=== PATIENT | female | born 1950 | race Caucasian/White ===

== ENCOUNTER 2019-03-16 14:05 | Outpatient (CLI) | payer MEDICARE, OTHER ==
[~2019-03-16] VITALS: Ht 154.9 cm; Wt 62.6 kg
[2019-03-16 14:15] VITALS: BP 122/65
--- NOTE | 2019-03-16 23:45 | Consultation ---
DATE OF CONSULTATION: 03/16/2019 CHIEF COMPLAINT: Here for screening colonoscopy and recent history of diverticulitis. HISTORY OF PRESENT ILLNESS: This is a very pleasant 68-year-old female who has not had any recent colonoscopy, was referred to us for colonoscopy after having diverticulitis in November. PAST MEDICAL HISTORY: 1. GERD. 2. Diverticulitis. 3. Mitral valve prolapse. PAST SURGICAL HISTORY: Hysterectomy. MEDICATIONS: FAMILY HISTORY: No family history of GI malignancies. SOCIAL HISTORY: The patient denies any tobacco, alcohol, or drug abuse. ALLERGIES: Penicillin, codeine, and phenothiazine. REVIEW OF SYSTEMS: A 10-point review of systems was performed and pertinent positives in HPI. PHYSICAL EXAMINATION: VITAL SIGNS: Temperature 97.4, pulse 70, respiratory rate 20, blood pressure 122/64. HEENT: Normocephalic and atraumatic. Sclerae anicteric NECK: Supple. No evidence of lymphadenopathy. CARDIOVASCULAR: Regular rate and rhythm. Plus S1 and S2. No obvious murmur. LUNGS: Clear to auscultation bilaterally. ABDOMEN: Positive bowel sounds. Soft and nontender. No rebound. No guarding. No peritoneal sign. EXTREMITIES: No cyanosis, no clubbing, no edema. ASSESSMENT: This is a 68-year-old female with recent diagnosis of diverticulitis in November status post treatment, has not had any colonoscopy in the last 5 years, was referred to us for colonoscopy. The procedure was explained to the patient. The risks and benefits and the prep was given to her. She agreed to the planned for 03/27/2019 at 8 o'clock. I want to thank, Dr. Shailesh Lowery for this kind referral. Yan Orozco M.D. DR: Anny JOB#: [id number] CC: Shailesh Lowery M.D.; Fax#: [phone]
[2019-03-17] MEDS ORDERED: NO MEDICATION (08:39)
== END 2019-03-16 15:47 | disposition home or self-care (01) ==
LOC: PAN 14:05
DX: K57.90 Diverticulosis of intestine, part unspecified, without perforation or abscess without bleeding (principal); K21.9 Gastro-esophageal reflux disease without esophagitis; Z90.710 Acquired absence of both cervix and uterus; Z88.0 Allergy status to penicillin; Z88.6 Allergy status to analgesic agent; Z88.8 Allergy status to other drugs, medicaments and biological substances
CPT/HCPCS: 99202

== ENCOUNTER 2019-03-27 08:11 | Day surgery (SDC) | payer MEDICARE, OTHER ==
[2019-03-27] VITALS (10 sets, daily range): BP systolic 109–122; BP diastolic 64–77
[~2019-03-27] VITALS: Ht 154.9 cm; Wt 61.7 kg
[~2019-03-27 08:11] MED LIST: NO MEDICATION
--- NOTE | 2019-03-27 08:50 | Short Stay Surgery H&P ---
History of Present Illness History of Present Illness Chief Complaint see recent office note HPI Soni Mcgowan is a 68 year old female who was admitted on for Gerd, Diverticulitis Patient History Allergies: Coded Allergies: CODEINE (Verified Allergy, Intermediate, hives, 03/27/19) PENICILLINS (Verified Allergy, Intermediate, hives, 03/27/19) PHENOTHIAZINES (Verified Adverse Reaction, Severe, "stroke like symptoms" , 03/27/19) Medication History Miscellaneous Medications [No Medication ], (Reported) Physical Exam Vital Signs Last Vital Signs Date Time Temp Pulse Resp B/P (MAP) Pulse Ox O2 Delivery O2 Flow Rate FiO2 03/27/19 08:43 Room Air Plan Attestation Are the patient's medical conditions optimized for surgery? Yan Orozco MD Mar 27, 2019 08:50
--- NOTE | 2019-03-27 08:50 | Pre-Procedure Note/Attestation ---
Pre-Procedure Note/Attestation Complete Prior to Procedure Planned Procedure: not applicable Procedure Narrative: esophagogastroduodenoscopy and colonoscopy Indications for Procedure Pre-Operative Diagnosis: screening colonoscopy, GERD, diverticulitis Attestation I attest that I discussed the nature of the procedure; its benefits; risks and complications; and alternatives (and the risks and benefits of such alternatives ), prior to the procedure, with the patient (or the patient's legal entry level marketing representative). I attest that, if there was a reasonable possibility of needing a blood transfusion, the patient (or the patient's legal entry level marketing representative) was given the [facility] standardized written summary, pursuant to the [place] Blood Safety Act ([place] Health and Safety Code # 1645, as amended). I attest that I re-evaluated the patient just prior to the surgery and that there has been no change in the patient's H&P, except as documented below: Yan Orozco MD Mar 27, 2019 08:50
[2019-03-27] MEDS ORDERED: NKM (08:59)
[2019-03-27] MEDS ORDERED: Lidocaine 1% MPF 10mg/ml 5ml ONE (09:00)
[2019-03-27] MEDS ORDERED: Propofol 200mg/20ml IV ONE (09:00)
--- NOTE | 2019-03-27 09:45 | Endoscopy Procedure Note ---
Endoscopy Procedure Note General Indication for Procedure: screening colon Procedures Performed: colonoscopy Operative Findings/Diagnosis: diverticulosis Specimen: none Pt Tolerated Procedure Well: Yes Estimated Blood Loss: none Anesthesia Anesthesiologist: diana Anesthesia: MAC Inserted Devices Implant(s) used?: No Quality Quality of Bowel Preparation: Good Did scope reach the cecum?: Yes Was there any complications?: No GI Core Measures 50 yrs or older w/o bx or poly: No 10yrs. F/U recommended: Yes If not recommended, why?: Above average risk 18 years or older w/prev. colo: Yes <3yrs. since last colonoscopy: No Yan Orozco MD Mar 27, 2019 09:45
[2019-03-27] MEDS ORDERED: fentaNYL 100 mcg/2 mL IV PRN (11:15)
[2019-03-27] MEDS ORDERED: DiphenhydrAMINE 50mg/ml Inj IVP PRN (11:15)
[2019-03-27] MEDS ORDERED: Midazolam 2mg/2ml Inj IVP PRN (11:15)
[2019-03-27] MEDS ORDERED: Atropine Inj 1mg/10ml Syr IV PRN (11:15)
--- NOTE | 2019-03-27 12:24 | Anethesia Preoperative Eval ---
Anesthesia Pre-op PMH/ROS General Date of Evaluation: Mar 27, 2019 Time of Evaluation: 09:00 Anesthesiologist: diana ASA Score: ASA 2 Mallampati Score Class I : Soft palate, uvula, fauces, pillars visible Class II: Soft palate, uvula, fauces visible Class III: Soft palate, base of uvula visible Class IV: Only hard plate visible Mallampati Classification: Class II Surgeon: charlotte Diagnosis: gerd Surgical Procedure: colonoscopy Anesthesia History: none Social History: smoking - nonsmoker Family History: no anesthesia problems Allergies: Coded Allergies: CODEINE (Verified Allergy, Intermediate, hives, 03/27/19) PENICILLINS (Verified Allergy, Intermediate, hives, 03/27/19) PHENOTHIAZINES (Verified Adverse Reaction, Severe, "stroke like symptoms" , 03/27/19) Medications: see eMAR Patient NPO?: Yes Past Medical History Cardiovascular: Reports: other - mitral valve prolapse Gastrointestinal/Genitourinary: Reports: GERD Anesthesia Pre-op Phys. Exam Physician Exam Last Vital Signs Date Time Temp Pulse Resp B/P (MAP) Pulse Ox O2 Delivery O2 Flow Rate FiO2 03/27/19 10:30 62 20 113/71 99 Room Air 03/27/19 10:21 97.7 03/27/19 10:03 6 Constitutional: NAD Neurologic: CN 2-12 intact Cardiovascular: RRR Respiratory: CTA Gastrointestinal: S/NT/ND Airway Exam Mallampati Score: Class II MO: limited Neck: flexible TMD: 2fb ROM: limited Anesthesia Pre-op A/P Risk Assessment & Plan Assessment: asa2 Plan: mac Status Change Before Surgery: No Pre-Antibiotics Drug: Inessa Verde MD Mar 27, 2019 12:24
--- NOTE | 2019-03-27 12:26 | Immediate Post-Op Evaluation ---
Immediate Post-Op Evalulation Immediate Post-Op Evalulation Procedure: colonoscopy Date of Evaluation: Mar 27, 2019 Time of Evaluation: 10:05 IV Fluids: 600ml 0.9ns Blood Products: none Estimated Blood Loss: neglgible Blood Pressure Systolic: 109 Blood Pressure Diastolic: 71 Pulse Rate: 65 Respiratory Rate: 18 O2 Sat by Pulse Oximetry: 99 Temperature (Fahrenheit): 97.1 Pain Score (1-10): 0 Nausea: No Vomiting: No Complications none Patient Status: awake, reacts, patent Hydration Status: adequate Drug: Inessa Verde MD Mar 27, 2019 12:26
--- NOTE | 2019-03-27 12:27 | 48 Hour Post Anesthesia Eval ---
Post Anesthesia Evaluation Procedure: colonoscopy Date of Evaluation: Mar 27, 2019 Time of Evaluation: 10:07 Blood Pressure Systolic: 111 0: 72 Pulse Rate: 62 Respiratory Rate: 18 Temperature (Fahrenheit): 97.1 O2 Sat by Pulse Oximetry: 100 Airway: patent Nausea: No Vomiting: No Pain Intensity: 0 Hydration Status: adequate Cardiopulmonary Status: stable Mental Status/LOC: patient returned to baseline Post-Anesthesia Complications: none Follow-up care needed: N/A Inessa Barlow MD Mar 27, 2019 12:27
--- NOTE | 2019-03-27 16:30 | Procedure Note ---
DATE OF PROCEDURE: 03/27/2019 SURGEON: Yan Orozco M.D. REFERRING PHYSICIAN: Shailesh Lowery M.D. PROCEDURE: Colonoscopy. ANESTHESIA: Per Dr. Hunt. INSTRUMENT: Olympus adult flexible colonoscope. INDICATION: 1. Screening colonoscopy evaluation. 2. History of diverticulitis. REASON FOR PROCEDURE: The procedure, risks, benefits, and possible consequences, including hemorrhage, aspiration, perforation and infection, and alternative treatments, were explained to the patient/legal guardian by Dr. Yan Orozco and the patient/legal guardian understood and accepted these risks. PROCEDURE IN DETAIL: After informed consent was obtained and the patient was adequately sedated, first rectal exam was performed, which was normal. Then, the scope was the advanced from the rectum into the cecum documented by appendiceal orifice, ileocecal valve, and right upper quadrant palpation. Quality of prep overall was good. The patient had some scattered diverticulosis, some on the right and some on the left. No evidence of any active diverticulitis at this time. Retroflexion of rectum showed evidence of few small nonbleeding internal hemorrhoids. SUMMARY OF FINDINGS: 1. Diverticulosis. 2. Internal hemorrhoids. RECOMMENDATIONS: 1. No evidence of any active diverticulitis at this time. 2. No evidence of any GI bleeding at this time. 3. Follow as an outpatient for follow-up. 4. Repeat colonoscopy in 5 years. I want to thank Dr. Shailesh Lowery for this kind referral. Yan Orozco M.D. DR: CORTNEY JOB#: [id number] CC: Shailesh Lowery M.D.; Fax#: [phone]
--- NOTE | 2019-04-04 14:12 | Cardiology Report ---
APPROVED REPORT EKG Measurement Heart [id number] Normal sinus rhythm Normal ECG
== END 2019-03-27 11:10 | disposition home or self-care (01) ==
LOC: GAS 08:11
DX: Z12.11 Encounter for screening for malignant neoplasm of colon (principal); K57.90 Diverticulosis of intestine, part unspecified, without perforation or abscess without bleeding; K64.8 Other hemorrhoids; Z88.6 Allergy status to analgesic agent; Z88.0 Allergy status to penicillin; K21.9 Gastro-esophageal reflux disease without esophagitis
CPT/HCPCS: 93005; G0121; J2704; 94003; 94150

== ENCOUNTER 2019-04-11 09:56 | Outpatient (CLI) | payer MEDICARE, OTHER ==
[~2019-04-11 09:56] MED LIST changes: +NKM
--- NOTE | 2019-04-11 10:29 | General Progress Note ---
Assessment/Plan Problem List: (1) Diverticulosis ICD Codes: K57.90 - Diverticulosis of intestine, part unspecified, without perforation or abscess without bleeding SNOMED: 183596634 (2) Diverticulitis ICD Codes: K57.92 - Diverticulitis of intestine, part unspecified, without perforation or abscess without bleeding SNOMED: 630967094 Assessment/Plan: repeat colonoscopy in 5 years Subjective ROS Limited/Unobtainable: Yes Allergies: Coded Allergies: CODEINE (Verified Allergy, Intermediate, hives, 03/27/19) PENICILLINS (Verified Allergy, Intermediate, hives, 03/27/19) PHENOTHIAZINES (Verified Adverse Reaction, Severe, "stroke like symptoms" , 03/27/19) Objective General Appearance: alert EENT: normal ENT inspection Neck: supple Cardiovascular: normal rate Respiratory/Chest: lungs clear Abdomen: normal bowel sounds, non tender, soft Extremities: non-tender Yan Orozco MD Apr 11, 2019 10:29
[2019-04-11 14:22] VITALS: BP 117/75
== END 2019-04-11 11:56 | disposition home or self-care (01) ==
LOC: PAN 09:56
DX: K57.92 Diverticulitis of intestine, part unspecified, without perforation or abscess without bleeding (principal); Z88.0 Allergy status to penicillin; Z88.6 Allergy status to analgesic agent; Z88.8 Allergy status to other drugs, medicaments and biological substances
CPT/HCPCS: 99212